=== PATIENT | male | born 1975 | race Caucasian/White ===

== ENCOUNTER 2021-02-14 18:35 | Emergency (ER) | payer OTHER, SELFPAY ==
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
[2021-02-14 18:42] VITALS: BP 121/73; PULSE 120; O2SAT 99
[2021-02-14 19:05] VITALS: BP 128/69; PULSE 120; RESP 18; TEMP 36.8; O2SAT 96; BMI 23.6
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
[2021-02-14] MEDS: Ibuprofen 800 MG TABLET PO (19:13)
[2021-02-14 19:30] VITALS: BP 118/67; PULSE 103; RESP 14; TEMP 36.7; O2SAT 95
--- NOTE | 2021-02-14 20:42 | PC.NURSE ---
PT SLEEPING IN STRETCHER, WAKES TO VOICE. RESPIRATIONS N/L. SKIN W/D. WILL CONTINUE TO MONITOR PT.
--- NOTE | 2021-02-14 21:00 | PC.NURSE ---
pt awaiting for d/c. md in room for instructions.
== END 2021-02-14 21:10 | disposition home or self-care (01) ==
PROVIDERS: Emergency Provider Emergency Medicine Emergency Medical Services
DX: S22.32XA Fracture of one rib, left side, initial encounter for closed fracture (principal); V48.5XXA Car driver injured in noncollision transport accident in traffic accident, initial encounter; Y93.9 Activity, unspecified; Y92.410 Unspecified street and highway as the place of occurrence of the external cause; Y99.9 Unspecified external cause status
CPT/HCPCS: 71101; 99283; 99284